=== PATIENT | female | born 1985 | race African-American/Black ===

== ENCOUNTER 2020-01-07 03:31 | Inpatient (IN) | payer OTHER ==
[~2020-01-07] VITALS: Ht 175.3 cm; Wt 103.0 kg
[2020-01-07] MEDS ORDERED: PREN-380 PO (04:33)
[2020-01-07] MEDS ORDERED: LACTATED RINGERS 1,000 ML IV SCH (04:34)
[2020-01-07] MEDS ORDERED: CARBOPROST 250 MCG/ML AMP IM PRN (04:35)
[2020-01-07] MEDS ORDERED: METHYLERGONOVINE 0.2 MG/ML AMP IM PRN ×2 (04:35→11:10)
[2020-01-07] MEDS ORDERED: AMPICILLIN 2,000 MG VIAL ONE (05:21)
[2020-01-07] MEDS ORDERED: ROPIVACAINE 0.2%/NS PREMIX 200 ML EPI ONE (06:22)
[2020-01-07] MEDS ORDERED: ROPIVACAINE 0.2%/NS PREMIX 200 ML EPI SCH (06:45)
[2020-01-07] MEDS ORDERED: OXYTOCIN 20 UNITS/LR PREMIX 1,000 ML IV ONE (07:12)
[2020-01-07] MEDS ORDERED: OXYTOCIN 20 UNITS in LACTATED RINGERS 1,000 ML IV SCH (07:15)
[2020-01-07 07:52] LABS: BASOPHILS % (AUTO) 0.3 % (0.0-2.0); EOSINOPHILS % (AUTO) 0.1 % (0.0-4.0); HEMATOCRIT 36.2 % (36-48); LYMPHOCYTES # (AUTO) 1.1 K/uL (2.5-16.5); LYMPHOCYTES % (AUTO) 8.3 % (20.5-51.1); MEAN CORPUSCULAR HEMOGLOBIN 33 pg (27-31); MEAN CORPUSCULAR HGB CONC 33 g/dL (33-37); MEAN CORPUSCULAR VOLUME 98.5 fL (80-94); MONOCYTES # (AUTO) 0.6 K/uL (0.8-1.0); MONOCYTES % (AUTO) 4.4 % (1.7-9.3); NEUTROPHILS # (AUTO) 11.1 K/uL (1.8-7.7); NEUTROPHILS % (AUTO) 86.9 % (42.2-75.2); PLATELET COUNT (AUTO) 266 K/uL (140-450); RED BLOOD CELL COUNT(AUTO) 3.68 MIL/uL (4.20-5.40); RED CELL DISTRIBUTION WIDTH 12.8 % (11.6-13.7); WHITE BLOOD COUNT (AUTO) 12.7 K/uL (4.8-10.8)
[2020-01-07] MEDS ORDERED: AMPICILLIN 2,000 MG in NACL 0.9% 100 ML IV SCH (08:00)
[2020-01-07 08:29] LABS: ANION GAP 16.2 (8-16); CARBON DIOXIDE 24.1 mmol/L (21-32); POTASSIUM 4.3 mmol/L (3.5-5.1)
[2020-01-07 08:35] LABS: ALBUMIN 2.9 g/dL (3.4-5.0); TOTAL BILIRUBIN 0.5 mg/dL (0.0-1.0)
[2020-01-07 08:50] LABS: APPEARANCE,URINE CLEAR (CLEAR); BILIRUBIN,URINE NEGATIVE (NEGATIVE); BLOOD, URINE TRACE-I (NEGATIVE); COLOR,URINE YELLOW (YELLOW); LEUKOCYTE ESTERASE ,URINE 1+ (NEGATIVE); NITRITE, URINE NEGATIVE (NEGATIVE); PH,URINE 6.5 (5.0-9.0); UGLUCOSE NEGATIVE (NEGATIVE)
[2020-01-07 09:15] LABS: RBC,URINE 0-5 /HPF (0-5)
--- NOTE | 2020-01-07 09:49 | NUR ---
PATIENT HAS BEEN SCREENED AND CATEGORIZED LOW NUTRITION RISK. PATIENT WILL BE SEEN WITHIN 7 DAYS OF ADMISSION. 01/13/[address]
[2020-01-07] MEDS ORDERED: IBUPROFEN 800 MG TAB PO PRN (11:10)
[2020-01-07] MEDS ORDERED: OXYTOCIN 10 UNITS/ML VIAL IM PRN (11:10)
[2020-01-07] MEDS ORDERED: METHYLERGONOVINE 0.2 MG TAB PO PRN (11:10)
[2020-01-07] MEDS ORDERED: BENZOCAINE/MENTHOL 20%-0.5% 60 GM CAN TP PRN (11:10)
[2020-01-07] MEDS ORDERED: MEASLES, MUMPS, AND RUBELLA 1 VIAL SQVAC PRN (11:10)
[2020-01-08] MEDS: IBUPROFEN 600 MG TAB PO PRN (03:52)
[2020-01-08 08:00] LABS: HEMATOCRIT 34.1 % (36-48); HEMOGLOBIN 11.2 g/dL (12.0-16.0)
[2020-01-08] MEDS ORDERED: BISACODYL 5 MG TABEC PO PRN (09:10)
[2020-01-08] MEDS ORDERED: DOCUSATE SODIUM 100 MG GELCAP PO SCH (10:37)
[2020-01-09] MEDS ORDERED: DOCUSATE SODIUM 100 MG GELCAP PO SCH (09:00)
[2020-01-09] MEDS: IBUPROFEN 600 MG TAB PO PRN (18:53)
== END 2020-01-09 22:25 | disposition home or self-care (01) | DRG 807 ==
LOC: MLD 03:31 → MFCC 11:30
PROVIDERS: ADMIT Obstetrics & Gynecology; ATTEND Obstetrics & Gynecology
PROC: 10E0XZZ Delivery of Products of Conception, External Approach (ICD-10-PCS; principal; 2020-01-07)
PROC: 00HU33Z Insertion of Infusion Device into Spinal Canal, Percutaneous Approach (ICD-10-PCS; 2020-01-07)
PROC: 3E0R3BZ Introduction of Anesthetic Agent into Spinal Canal, Percutaneous Approach (ICD-10-PCS; 2020-01-07)
DX: O76 Abnormality in fetal heart rate and rhythm complicating labor and delivery (principal); Z37.0 Single live birth; K59.00 Constipation, unspecified; O99.63 Diseases of the digestive system complicating the puerperium; O77.0 Labor and delivery complicated by meconium in amniotic fluid; Z3A.41 41 weeks gestation of pregnancy
CPT/HCPCS: 36415; 59409; 80053; 81001; 85018; 85025; 86592; 86886; 86900; 86901; 87086; J0290; J2590; J2795; J7120